=== PATIENT | male | born 1990 | race Caucasian/White ===

== ENCOUNTER 2018-10-01 23:56 | Emergency (ER) | payer SELFPAY ==
[2018-10-02 00:08] VITALS: BP 145/95; PULSE 90; TEMP 98.3; BMI 30.8
[2018-10-02] MEDS ORDERED: hydrOXYzine PAMOATE 25 MG CAPSULE (FP) PO ONE (00:32)
--- NOTE | 2018-10-02 01:22 | PDOC ---
History of Present Illness - General Chief Complaint: Psychiatric Stated Complaint: PANIC ATTACKS Time Seen by Provider: 10/02/18 00:07 History Source: Patient, Significant Other Exam Limitations: No Limitations Past History - Past Medical History Allergies/Adverse Reactions: Allergies Allergy/AdvReac Type Severity Reaction Status Date / Time No Known Allergies Allergy Verified 10/02/18 00:07 Home Medications: Ambulatory Orders Hydroxyzine Pamoate 25 mg PO Q6H PRN #8 capsule 10/02/18 COPD: No - Immunization History Immunization Up to Date: Yes - Suicide/Smoking/Psychosocial Hx Smoking History: Never smoked Have you smoked in the past 12 months: No Information on smoking cessation initiated: No Hx Alcohol Use: No Drug/Substance Use Hx: No *Physical Exam - Vital Signs Last Vital Signs Temp Pulse Resp BP Pulse Ox 98.3 F 90 22 H 145/95 97 10/02/18 00:07 10/02/18 00:07 10/02/18 00:07 10/02/18 00:07 10/02/18 00:07 - Physical Exam General Appearance: No: Apparent Distress HEENT: positive: EOMI, EDDI Respiratory/Chest: positive: Lungs Clear, Normal Breath Sounds. negative: Respiratory Distress Cardiovascular: positive: Regular Rhythm, Regular Rate, S1, S2. negative: Murmur Gastrointestinal/Abdominal: positive: Normal Bowel Sounds, Soft. negative: Tender, Distended, Guarding, Rebound Integumentary: positive: Normal Color Neurologic: positive: Fully Oriented, Alert, Normal Mood/Affect ED Treatment Course - Medications Given in the ED: ED Medications Discontinued Medications Generic Name Dose Route Start Last Admin Trade Name Freq PRN Reason Stop Dose Admin Hydroxyzine Pamoate 25 mg 10/02/18 00:32 10/02/18 00:47 Vistaril - PO 10/02/18 00:33 25 mg ONCE ONE Administration Medical Decision Making - Medical Decision Making 28 y/o M with no sig pmh presents with feeling anxious today. Per patient and his girlfriend, patient kept asking his girlfriend the same questions repeatingly and seemed forgetful. Per girlfriend, patient appeared very anxious and almost seemed like he was getting a panic attack, which she has never seen him have before. Patient states he has been struggling with anxiety with years, but it has been getting worse over the past month. Mentions stress about work. Has not seen a PCP or therapist regarding this and states recently moved here from [facility]. Chews tobacco but denies drug use; drinks alcohol socially. Denies fever, sob, cp, abd pain, n/v/d, ABREU, numbness/tingling/weakness of extremities, suicidal/homicidal thoughts, A/V hallucinations. Patient given Hydroxyzine patient currently appears calm Will refer to psychiatrist for further evaluation 10/02/18 01:22 *DC/Admit/Observation/Transfer Diagnosis at time of Disposition: Anxiety - Discharge Dispostion Disposition: HOME Condition at time of disposition: Stable Decision to Admit order: No - Prescriptions Prescriptions: Hydroxyzine Pamoate 25 mg PO Q6H PRN #8 capsule PRN Reason: Anxiety - Referrals Referrals: Tracee Burden NP [Nurse Practitioner] - Call tomorrow - Patient Instructions Printed Discharge Instructions: DI for Anxiety -- Adult Additional Instructions: Thank you for choosing [facility]. It was a pleasure taking care of you. You were referred to psychiatrist for further evaluation of your anxiety Take Hydroxyzine as needed if feeling anxious. This medication can make you drowsy. Return to the Emergency Department if your symptoms worsen or persist, have thoughts of hurting yourself or other, having visual or auditory hallucinations or other concerning symptoms. - Post Discharge Activity
== END 2018-10-02 01:36 | disposition home or self-care (01) ==
LOC: JER 23:56
DX: F41.9 Anxiety disorder, unspecified (principal)
CPT/HCPCS: 99282-25